=== PATIENT | female | born 1980 | race Caucasian/White ===

== ENCOUNTER 2021-07-07 16:26 | Observation (INO) ==
[2021-07-07 17:53] LABS: Basophils # 0.1 K/mcL (0.0-0.2); Basophils % 0.5 %; Eosinophils # 0.2 K/mcL (0.0-0.6); Eosinophils % 1.1 %; Hematocrit 46.3 % (35.3-44.9); Hemoglobin 13.8 g/dL (11.5-15.4); Immature Granulocytes % 0.6 % (0-4); Lymphocytes # 3.6 K/mcL (0.6-4.6); Lymphocytes % 21.5 %; Mean Corpuscular HGB Conc 29.8 g/dL (31.6-35.5); Mean Corpuscular Hemoglobin 27.7 pg (28.0-33.3); Mean Platelet Volume 11.3 fL (9.4-12.4); Monocytes # 1.2 K/mcL (0.0-1.3); Monocytes % 7.1 %; Neutrophils # 11.6 K/mcL (1.6-8.9); Platelet Count 269 K/mcL (140-400); Red Blood Count 4.98 M/mcL (3.82-4.97); Red Cell Distribution Width 16.3 % (11.5-14.5); Segmented Neutrophils % 69.2 %; White Blood Count 16.8 K/mcL (4.3-11.1)
[2021-07-07 18:02] LABS: INR 2.2; Prothrombin Time 24.4 Seconds (9.4-12.1)
[2021-07-07 18:14] LABS: Alanine Aminotransferase 27 Units/L (7-52); Albumin 3.3 g/dL (3.5-5.7); Albumin/Globulin Ratio 0.9 (1.1-2.2); Alkaline Phosphatase 87 Units/L (34-104); Aspartate Amino Transferase 26 Units/L (13-39); BUN/Creatinine Ratio 22 (6-26); Bilirubin,Total 0.8 mg/dL (0.3-1.0); Blood Urea Nitrogen 17 mg/dL (6-20); Carbon Dioxide 28 mEq/L (23-29); Chloride 98 mEq/L (98-107); Globulin 3.7 g/dL (2.4-3.5); Glucose 140 mg/dL (70-105); Osmolality,Calculated 286 (280-300); Potassium 3.1 mEq/L (3.5-5.1); Sodium 136 mEq/L (136-145); Troponin I < 0.03 ng/mL (< 0.04); eGFR For African Americans > 60 (> 60); eGFR For Non-African Americans > 60 (> 60)
[2021-07-07] MEDS ORDERED: levoFLOXacin 750 MG/150 ML 750 MG/150 ML BAG IVPB STA (20:16)
[2021-07-07] MEDS ORDERED: Naloxone 0.4 MG/ML INJ IVP PRN (22:30)
[2021-07-07] MEDS ORDERED: Acetaminophen 325 MG TABLET PO PRN (22:30)
[2021-07-07] MEDS ORDERED: Ondansetron 4 MG/2 ML VIAL IVP PRN (22:30)
[2021-07-08] MEDS ORDERED: Sennosides/Docusate Sodium TABLET PO PRN (00:41)
[2021-07-08] MEDS ORDERED: Ondansetron 4 MG/2 ML VIAL IVP PRN (00:41)
[2021-07-08] MEDS ORDERED: Acetaminophen 325 MG TABLET PO PRN (00:41)
[2021-07-08] MEDS ORDERED: 0.9 % Sodium Chloride 1,000 ML IVC SCH (00:41)
[2021-07-08] MEDS ORDERED: *HR* HYDROcodone/Acet 5/325 mg TABLET PO PRN (00:41)
[2021-07-08] MEDS ORDERED: Ondansetron ODT 4 MG TAB.RAPDIS SL PRN (00:41)
[2021-07-08] MEDS ORDERED: Naloxone 0.4 MG/ML INJ IVP PRN ×2 (00:41)
[2021-07-08 07:18] LABS: Basophils # 0.1 K/mcL (0.0-0.2); Basophils % 0.5 %; Eosinophils # 0.1 K/mcL (0.0-0.6); Eosinophils % 1.2 %; Hematocrit 38.6 % (35.3-44.9); Immature Granulocytes % 0.6 % (0-4); Lymphocytes # 3.5 K/mcL (0.6-4.6); Lymphocytes % 32.9 %; Mean Corpuscular HGB Conc 31.1 g/dL (31.6-35.5); Mean Corpuscular Hemoglobin 27.6 pg (28.0-33.3); Mean Corpuscular Volume 88.9 fL (83.0-100.0); Mean Platelet Volume 11.1 fL (9.4-12.4); Monocytes # 0.9 K/mcL (0.0-1.3); Monocytes % 8.5 %; Platelet Count 299 K/mcL (140-400); Red Blood Count 4.34 M/mcL (3.82-4.97); Red Cell Distribution Width 16.1 % (11.5-14.5); Segmented Neutrophils % 56.3 %; White Blood Count 10.7 K/mcL (4.3-11.1)
[2021-07-08 07:27] LABS: INR 1.5; Prothrombin Time 16.8 Seconds (9.4-12.1)
[2021-07-08 07:40] LABS: BUN/Creatinine Ratio 19 (6-26); Blood Urea Nitrogen 15 mg/dL (6-20); Calcium 8.6 mg/dL (8.6-10.3); Carbon Dioxide 32 mEq/L (23-29); Chloride 99 mEq/L (98-107); Glucose 140 mg/dL (70-105); Magnesium 1.6 mg/dL (1.6-2.6); Osmolality,Calculated 289 (280-300); Potassium 3.1 mEq/L (3.5-5.1); Sodium 138 mEq/L (136-145); eGFR For African Americans > 60 (> 60); eGFR For Non-African Americans > 60 (> 60)
[2021-07-08 07:49] LABS: Thyroid Stimulating Hormone 5.532 mcIU/mL (0.340-5.600)
[2021-07-08] MEDS: Budesonide/Formoterol 160/4.5 1 PUFF INH IH SCH ×2 (08:07→21:30)
[2021-07-08] MEDS: atenoloL 25 MG TABLET PO SCH ×2 (08:12→21:26)
[2021-07-08] MEDS: Magnesium Oxide 400 MG TABLET PO SCH ×2 (08:13→21:26)
[2021-07-08] MEDS: Ibuprofen 800 MG TABLET PO SCH ×2 (08:13→21:25)
[2021-07-08] MEDS: allopurinoL 100 MG TABLET PO SCH (08:13)
[2021-07-08] MEDS: *HR* Rivaroxaban 15 MG TABLET PO SCH ×2 (08:14→21:26)
[2021-07-08] MEDS: Pregabalin 75 MG CAPSULE PO SCH ×3 (08:14→21:24)
[2021-07-08] MEDS: Cholecalciferol (D-3) 1,000 UNIT (25MCG) TABLET PO SCH (08:14)
[2021-07-08] MEDS: methocarbamoL 500 MG TABLET PO SCH ×2 (08:15→21:24)
[2021-07-08] MEDS: BuPROPion XL (24 HR) 150 MG TABLET PO SCH (08:15)
[2021-07-08] MEDS: Furosemide 40 MG TABLET PO SCH (08:15)
[2021-07-08] MEDS ORDERED: Dextrose 4 GM Chewable Tablets PO PRN ×2 (08:50)
[2021-07-08] MEDS ORDERED: D5% in Water 1,000 ML IVC PRN (08:50)
[2021-07-08] MEDS ORDERED: *HR* Dextrose 50 % in Water (Syg) 50 ML SYRINGE IVP PRN (08:50)
[2021-07-08] MEDS: metroNIDAZOLE 500 MG TABLET PO SCH ×3 (10:07→21:26)
[2021-07-08] MEDS: Insulin LISPRO 300 UNITS/3 ML VIAL SUBQ SCH ×3 (12:02→21:35)
[2021-07-08 13:11] LABS: C-Reactive Protein 17 mg/L (Less than 10)
[2021-07-08 15:05] LABS: Bilirubin,Urine Negative (Negative); Blood,Urine Negative (Negative); Clarity,Urine Clear (Clear); Color,Urine Yellow (Yellow); Glucose,Urine (UA) Normal (Normal); Ketones,Urine Negative (Negative); Leukocyte Esterase,Urine Negative (Negative); Nitrite,Urine Negative (Negative); Protein,Urine Negative (Neg-Trace); Specific Gravity,Urine 1.015 (1.010-1.025); Urobilinogen,Urine Normal (Normal)
[2021-07-08] MEDS ORDERED: *HR* Rivaroxaban 10 MG TABLET PO SCH (17:00)
[2021-07-08] MEDS: *HR* HYDROcodone/Acet 5/325 mg TABLET PO PRN ×2 (17:55→21:31)
[2021-07-08] MEDS: levoFLOXacin 750 MG/150 ML 750 MG/150 ML BAG IVPB SCH (21:30)
[2021-07-08] MEDS: Nystatin POWDER 30 GM BOTTLE TP SCH ×2 (21:33→21:34)
[2021-07-09] MEDS: Budesonide/Formoterol 160/4.5 1 PUFF INH IH SCH ×2 (07:59→21:28)
[2021-07-09 08:34] LABS: Basophils # 0.1 K/mcL (0.0-0.2); Basophils % 0.8 %; Eosinophils # 0.1 K/mcL (0.0-0.6); Eosinophils % 1.8 %; Hematocrit 38.7 % (35.3-44.9); Hemoglobin 11.9 g/dL (11.5-15.4); Immature Granulocytes % 0.3 % (0-4); Lymphocytes # 2.5 K/mcL (0.6-4.6); Lymphocytes % 33.2 %; Mean Corpuscular HGB Conc 30.7 g/dL (31.6-35.5); Mean Corpuscular Hemoglobin 27.6 pg (28.0-33.3); Mean Corpuscular Volume 89.8 fL (83.0-100.0); Mean Platelet Volume 11.5 fL (9.4-12.4); Monocytes # 0.6 K/mcL (0.0-1.3); Monocytes % 7.9 %; Neutrophils # 4.3 K/mcL (1.6-8.9); Platelet Count 252 K/mcL (140-400); Red Blood Count 4.31 M/mcL (3.82-4.97); Red Cell Distribution Width 16.2 % (11.5-14.5); White Blood Count 7.6 K/mcL (4.3-11.1)
[2021-07-09 09:05] LABS: BUN/Creatinine Ratio 21 (6-26); Blood Urea Nitrogen 15 mg/dL (6-20); Calcium 8.4 mg/dL (8.6-10.3); Carbon Dioxide 32 mEq/L (23-29); Chloride 100 mEq/L (98-107); Glucose 151 mg/dL (70-105); Osmolality,Calculated 290 (280-300); Potassium 3.4 mEq/L (3.5-5.1); Sodium 138 mEq/L (136-145); eGFR For African Americans > 60 (> 60); eGFR For Non-African Americans > 60 (> 60)
[2021-07-09] MEDS: Cholecalciferol (D-3) 1,000 UNIT (25MCG) TABLET PO SCH (09:44)
[2021-07-09] MEDS: BuPROPion XL (24 HR) 150 MG TABLET PO SCH (09:44)
[2021-07-09] MEDS: *HR* HYDROcodone/Acet 5/325 mg TABLET PO PRN ×2 (09:44→17:03)
[2021-07-09] MEDS: Ibuprofen 800 MG TABLET PO SCH ×2 (09:44→23:13)
[2021-07-09] MEDS: allopurinoL 100 MG TABLET PO SCH (09:44)
[2021-07-09] MEDS: Magnesium Oxide 400 MG TABLET PO SCH ×2 (09:45→22:17)
[2021-07-09] MEDS: metroNIDAZOLE 500 MG TABLET PO SCH ×3 (09:45→23:18)
[2021-07-09] MEDS: methocarbamoL 500 MG TABLET PO SCH ×2 (09:45→22:18)
[2021-07-09] MEDS: Nystatin POWDER 30 GM BOTTLE TP SCH ×3 (09:45→22:17)
[2021-07-09] MEDS: *HR* Rivaroxaban 15 MG TABLET PO SCH ×2 (09:45→22:17)
[2021-07-09] MEDS: Pregabalin 75 MG CAPSULE PO SCH ×3 (09:45→22:19)
[2021-07-09] MEDS: atenoloL 25 MG TABLET PO SCH ×2 (09:46→22:19)
[2021-07-09] MEDS: Insulin LISPRO 300 UNITS/3 ML VIAL SUBQ SCH ×4 (09:58→22:20)
[2021-07-09] MEDS: Furosemide 40 MG TABLET PO SCH ×3 (09:58→17:00)
[2021-07-09] MEDS: levoFLOXacin 750 MG/150 ML 750 MG/150 ML BAG IVPB SCH (22:21)
[2021-07-10 07:08] LABS: Basophils # 0.1 K/mcL (0.0-0.2); Basophils % 0.7 %; Eosinophils # 0.1 K/mcL (0.0-0.6); Eosinophils % 1.3 %; Hematocrit 36.1 % (35.3-44.9); Hemoglobin 11.1 g/dL (11.5-15.4); Immature Granulocytes % 0.4 % (0-4); Lymphocytes # 2.1 K/mcL (0.6-4.6); Mean Corpuscular HGB Conc 30.7 g/dL (31.6-35.5); Mean Corpuscular Hemoglobin 27.6 pg (28.0-33.3); Mean Corpuscular Volume 89.8 fL (83.0-100.0); Mean Platelet Volume 11.2 fL (9.4-12.4); Monocytes # 0.5 K/mcL (0.0-1.3); Monocytes % 7.1 %; Neutrophils # 4.8 K/mcL (1.6-8.9); Platelet Count 244 K/mcL (140-400); Red Blood Count 4.02 M/mcL (3.82-4.97); Red Cell Distribution Width 16.2 % (11.5-14.5); Segmented Neutrophils % 62.5 %; White Blood Count 7.6 K/mcL (4.3-11.1)
[2021-07-10] MEDS: Insulin LISPRO 300 UNITS/3 ML VIAL SUBQ SCH ×4 (07:54→20:23)
[2021-07-10] MEDS: Budesonide/Formoterol 160/4.5 1 PUFF INH IH SCH ×2 (08:00→21:26)
[2021-07-10] MEDS: Cholecalciferol (D-3) 1,000 UNIT (25MCG) TABLET PO SCH (08:02)
[2021-07-10] MEDS: BuPROPion XL (24 HR) 150 MG TABLET PO SCH (08:02)
[2021-07-10] MEDS: Ibuprofen 800 MG TABLET PO SCH ×2 (08:02→20:21)
[2021-07-10] MEDS: Magnesium Oxide 400 MG TABLET PO SCH ×2 (08:02→20:22)
[2021-07-10] MEDS: *HR* Rivaroxaban 15 MG TABLET PO SCH (08:03)
[2021-07-10] MEDS: allopurinoL 100 MG TABLET PO SCH (08:03)
[2021-07-10] MEDS: methocarbamoL 500 MG TABLET PO SCH ×2 (08:03→20:20)
[2021-07-10] MEDS: Furosemide 40 MG TABLET PO SCH ×2 (08:03→16:59)
[2021-07-10] MEDS: Pregabalin 75 MG CAPSULE PO SCH ×3 (08:04→20:21)
[2021-07-10] MEDS: atenoloL 25 MG TABLET PO SCH ×2 (08:04→20:20)
[2021-07-10] MEDS: Nystatin POWDER 30 GM BOTTLE TP SCH ×3 (08:04→20:23)
[2021-07-10] MEDS: *HR* HYDROcodone/Acet 5/325 mg TABLET PO PRN ×2 (11:33→15:25)
[2021-07-10 21:10] LABS: Hematocrit 37.5 % (35.3-44.9); Hemoglobin 11.6 g/dL (11.5-15.4)
[2021-07-11 07:07] LABS: Basophils % 0.5 %; Eosinophils # 0.2 K/mcL (0.0-0.6); Eosinophils % 1.8 %; Hematocrit 36.2 % (35.3-44.9); Hemoglobin 11.3 g/dL (11.5-15.4); Immature Granulocytes % 0.5 % (0-4); Lymphocytes # 2.6 K/mcL (0.6-4.6); Lymphocytes % 31.6 %; Mean Corpuscular HGB Conc 31.2 g/dL (31.6-35.5); Mean Corpuscular Hemoglobin 27.8 pg (28.0-33.3); Mean Corpuscular Volume 88.9 fL (83.0-100.0); Mean Platelet Volume 11.1 fL (9.4-12.4); Monocytes # 0.6 K/mcL (0.0-1.3); Monocytes % 7.1 %; Neutrophils # 4.8 K/mcL (1.6-8.9); Platelet Count 238 K/mcL (140-400); Red Blood Count 4.07 M/mcL (3.82-4.97); Segmented Neutrophils % 58.5 %; White Blood Count 8.1 K/mcL (4.3-11.1)
[2021-07-11] MEDS: Budesonide/Formoterol 160/4.5 1 PUFF INH IH SCH ×2 (08:00→21:41)
[2021-07-11] MEDS: allopurinoL 100 MG TABLET PO SCH (09:19)
[2021-07-11] MEDS: Furosemide 40 MG TABLET PO SCH ×2 (09:20→17:21)
[2021-07-11] MEDS: Ibuprofen 800 MG TABLET PO SCH ×2 (09:21→22:42)
[2021-07-11] MEDS: Cholecalciferol (D-3) 1,000 UNIT (25MCG) TABLET PO SCH (09:21)
[2021-07-11] MEDS: BuPROPion XL (24 HR) 150 MG TABLET PO SCH (09:21)
[2021-07-11] MEDS: Pregabalin 75 MG CAPSULE PO SCH ×3 (09:21→22:43)
[2021-07-11] MEDS: Magnesium Oxide 400 MG TABLET PO SCH ×2 (09:21→22:43)
[2021-07-11] MEDS: Insulin LISPRO 300 UNITS/3 ML VIAL SUBQ SCH ×4 (09:22→22:49)
[2021-07-11] MEDS: atenoloL 25 MG TABLET PO SCH ×2 (09:22→22:43)
[2021-07-11] MEDS: methocarbamoL 500 MG TABLET PO SCH ×2 (09:22→22:42)
[2021-07-11] MEDS: Nystatin POWDER 30 GM BOTTLE TP SCH ×3 (09:23→22:50)
[2021-07-11] MEDS ORDERED: SEMAGLUTIDE 0.25 MG/0.2 ML SUBQ SCH (22:20)
[2021-07-11] MEDS: *HR* HYDROcodone/Acet 5/325 mg TABLET PO PRN (22:50)
[2021-07-12] MEDS: Insulin LISPRO 300 UNITS/3 ML VIAL SUBQ SCH ×2 (08:07→11:34)
[2021-07-12] MEDS: Budesonide/Formoterol 160/4.5 1 PUFF INH IH SCH (08:19)
[2021-07-12] MEDS: Ibuprofen 800 MG TABLET PO SCH (08:58)
[2021-07-12] MEDS: Pregabalin 75 MG CAPSULE PO SCH ×2 (08:59→14:59)
[2021-07-12] MEDS: methocarbamoL 500 MG TABLET PO SCH (08:59)
[2021-07-12] MEDS: BuPROPion XL (24 HR) 150 MG TABLET PO SCH (09:00)
[2021-07-12] MEDS: Magnesium Oxide 400 MG TABLET PO SCH (09:01)
[2021-07-12] MEDS: allopurinoL 100 MG TABLET PO SCH (09:01)
[2021-07-12] MEDS: Furosemide 40 MG TABLET PO SCH (09:02)
[2021-07-12] MEDS: atenoloL 25 MG TABLET PO SCH (09:02)
[2021-07-12] MEDS: Cholecalciferol (D-3) 1,000 UNIT (25MCG) TABLET PO SCH (09:02)
[2021-07-12] MEDS: Nystatin POWDER 30 GM BOTTLE TP SCH ×2 (09:06→15:01)
[2021-07-12 10:39] VITALS: RESP 20; O2SAT 92
[2021-07-12 11:25] VITALS: BP 117/77; PULSE 80; TEMP 97.5
[2021-07-12] MEDS: *HR* Rivaroxaban 15 MG TABLET PO SCH (11:36)
[2021-07-16] MEDS ORDERED: *HR* Rivaroxaban 10 MG TABLET PO SCH (17:00)
== END 2021-07-12 15:40 | disposition home or self-care (01) ==
LOC: EMEROOPIK 16:26 → INPPIK 16:26
PROVIDERS: ADMIT Student in an Organized Health Care Education/Training Program; ATTEND Student in an Organized Health Care Education/Training Program